=== PATIENT | female | born 1975 | race Caucasian/White ===

== ENCOUNTER 2016-08-13 11:05 | Emergency (ER) | payer OTHER, MEDICAID ==
[2016-08-13 11:40] VITALS: BP 108/57; PULSE 68; RESP 20; TEMP 98.4; O2SAT 99
--- NOTE | 2016-08-13 11:52 | UCPHY ---
H & P Time Seen by Provider: 08/13/16 11:40 Patient Type: Established HPI/ROS: HPI Flu-like symptoms. 41-year-old female by private vehicle. She complains of a nonproductive cough, muscle aches and joint aches, fever, nasal congestion, sore throat, bilateral ear pain and chest tightness onset last night. She reports that several of her coworkers have been diagnosed with flu recently. ROS: Constitutional: As above, no chills. No weakness. Eyes: No discharge. No changes in vision. ENT: As above. Respiratory: As above. No shortness of breath. Cardiac: No chest pain, no palpitations. As above. Gastrointestinal: No abdominal pain, no vomiting, no diarrhea. Genitourinary: No hematuria. No dysuria or increased frequency with urination. Musculoskeletal: As above. Skin: No rashes. Neurological: As above. No focal weakness or altered sensation. Past medical history: Cholecystectomy. Tubal ligation. Social history: Here with her son. As above. Nonsmoker. Physical Exam: General Appearance: Alert, no distress. This patient is responding to questions appropriately and in full sentences. This patient appears well- hydrated and well-nourished. No voice changes Eyes: Pupils equal and round no pallor or injection. No lid edema, erythema or injection. ENT, Mouth: Mucous membranes are moist. The pharyngeal tissues are unremarkable. No edema or swelling. No asymmetry suggestive of abscess. No erythema or exudates. External auditory canals and tympanic membranes are clear and unremarkable bilaterally on speculum examination. No stridor on auscultation of her neck. Respiratory: There are no retractions, lungs are clear to auscultation with good air movement bilaterally. Intermittent dry cough. No tachypnea. Cardiovascular: Regular rate and rhythm. No murmur. Gastrointestinal: Abdomen is soft and nontender, no masses, bowel sounds normal. No focal tenderness at McBurney's point. No Snowden sign. Neurological: Motor sensory function is grossly intact. Cranial nerves are normal. Gait is normal. Skin: Warm and dry, no rashes. Musculoskeletal: Neck is supple and nontender. No cervical, submandibular or submental lymphadenopathy. Extremities are symmetrical. All joints range without pain or impingement. Psychiatric: No agitation. No depression. Database: EKG: Imaging: Procedures: Emergency department course: Patient's presentation is consistent with influenza. She is within the treatment time window for Tamiflu. I discussed treatment with Tamiflu as well as ibuprofen and Tylenol with her. Her vital signs have been reviewed and are normal. I feel she is safe for discharge and she feels comfortable going home. Follow-up and return to Urgent Care/emergency department precautions discussed. All of her questions were answered. She was discharged in good condition. Differential Diagnosis: The differential diagnosis on this patient includes but is not limited to influenza, viral syndrome. Otitis media, serious bacterial infection unlikely. This represents a partial list of diagnoses considered. These considerations are based on history, physical exam, past history, reassessment and diagnostic testing. Smoking Status: Former smoker Constitutional: Initial Vital Signs Temperature (C) 36.9 C 08/13/16 11:22 Heart Rate 68 08/13/16 11:22 Respiratory Rate 20 08/13/16 11:22 Blood Pressure 108/57 L 08/13/16 11:22 O2 Sat (%) 99 08/13/16 11:22 O2 Delivery Mode Room Air Allergies/Adverse Reactions: tramadol [Tramadol] Allergy (Severe, Verified 08/13/16 11:21) Other-Enter Comments Home Medications: Medication Instructions Recorded Oseltamivir Phosphate [Tamiflu 75 75 mg PO BID #10 cap 08/13/16 mg (RX)] Departure - Departure Disposition: Home, Routine, Self-Care Clinical Impression: Influenza Condition: Good Instructions: Influenza (ED) Additional Instructions: Read and follow provided instructions. Follow-up with your primary care physician in 1-2 days for re-evaluation as needed. Ibuprofen dosin mg every 6 hours with meals for the next 3 days only. As needed for sore throat and body aches. Tylenol dosin mg every 6-8 hours as needed for fever for the next 3 days. Return to the emergency department for worsening symptoms or other serious concerns. Referrals: [facility] [Other] - As per Instructions Prescriptions: Oseltamivir Phosphate [Tamiflu 75 mg (RX)] 75 mg PO BID #10 cap - PQRS PQRS Measurement: Not applicable.
[2016-08-13] MEDS ORDERED: IBUPROFEN 800 MG TAB PO ONE (11:53)
[2016-08-13] MEDS ORDERED: IBUPROFEN 200 MG TAB PO ONE ×2 (12:05→12:10)
== END 2016-08-13 12:11 | disposition home or self-care (01) ==
LOC: CED 11:05
DX: J11.1 Influenza due to unidentified influenza virus with other respiratory manifestations (principal); Z90.49 Acquired absence of other specified parts of digestive tract
CPT/HCPCS: 99214-PO; G0463-PO